=== PATIENT | male | born 1965 | race Caucasian/White ===

== ENCOUNTER → 2018-05-12 | Outpatient (CLI) | payer OTHER ==
[~2018-05-12] MED LIST: ASPIRIN81 M1 PO; CRESTOR40 MG PO; DIOVAN HCT 11 TABLET PO; GLUCOPHAGE500 MG PO; LIDODERM 5% P1 PATCH TD; LO-DOSE ASPIRIN81 M1 PO; LOPID600 M1 NG; MEDROL DOSEPAK4 MG PO; MOBIC15 MG PO; PERCOCET 5/31 TABLET PO; TOPROL XL25 MG PO; TOPROL XL50 MG PO; TYLENOL EXTRA500 MG PO; VITAMIN D-32000 UNI1 PO; ZOFRAN4 MG PO
== END | disposition home or self-care (01) ==
LOC: CDC 15:58
DX: Z01.810 Encounter for preprocedural cardiovascular examination (principal); R00.1 Bradycardia, unspecified; I45.4 Nonspecific intraventricular block; R94.31 Abnormal electrocardiogram [ECG] [EKG]
CPT/HCPCS: 93000